=== PATIENT | male | born 1955 | race African-American/Black ===

== ENCOUNTER 2017-01-22 08:40 | Emergency (ER) | payer SELFPAY ==
[2017-01-22 08:44] VITALS: BMI 25.8
[2017-01-22] MEDS ORDERED: ASPIRIN ONE (08:48)
[2017-01-22] MEDS ORDERED: PEPCID 20 MG IV PREMIX* 20 MG/50 ML BAG IV ONE ×2 (09:15→09:19)
[2017-01-22] MEDS ORDERED: ASPIRIN 81 MG CHEWTAB PO ONE (09:17)
[2017-01-22] MEDS ORDERED: NS 1000 ML 1,000 ML ONE (09:19)
--- NOTE | 2017-01-22 09:19 | DR.GENAD ---
HPI - PCP Primary Care Physician: NFD - Complaint/Symptoms Chief Complaint:: "I have been walking to [place] and I started having some sharp chest pains. I just want to get checked out to make sure everything is okay." - Nurses notes reviewed Nurses Notes Review: Yes - Source History Provided: Patient - Mode of Arrival Mode of Arrival: Ambulatory - Timing Onset of Chief Complaint: 01/22/17 PMH - PMH Past Medical History: Yes Past Medical History: Hypertension Past Surgical History: Yes Surgical History: Ortho Surgery Past Surgical History Comment: Right hand (pins) - Family History History of Family Medical Conditions: Yes Family Medical History: Diabetes Mellitus, Cancer, Hypertension - Social History Does patient currently use any type of tobacco product: No Have you used tobacco products in the last 12 months: No Type of Tobacco Use: None Does any household member use tobacco: No Alcohol Use: DAILY Do you use any recreational Drugs:: No Lives With: Other Lives Where: Home - infectious screening In the last 2 months have you had wt loss of >10#?: NO Have you had fever, night sweats or hemotysis?: No Have you traveled outside the country in the last 6 months?: No Isolation: Standard ROS - Review of Systems Constitutional: Weakness, Fatigue. negative: Chills, Fever Eyes: No Symptoms Reported. negative: Eye Pain, Discharge ENTM: No Symptoms Reported. negative: Ear Pain, Nose Discharge, Nose Congestion , Throat Pain Respiratoy: Non-Productive Cough, Short of Breath. negative: Productive Cough, Wheezing, Hemoptysis Cardiovascular: Chest Pain. negative: Edema, Palpitations, Syncope Gastrointestinal/Abdominal: No Symptoms Reported All Other Systems: Reviewed and Negative PE - Vital Signs Vitals: Temperature 98.3 F Pulse Rate [Brachial] 99 Pulse Rate 95 Respiratory Rate 20 Blood Pressure [Left Arm] 119/62 Blood Pressure 134/80 O2 Sat by Pulse Oximetry 100 - General Limitations: No Limitations General Appearance: Alert - Head Head Exam: Normal Inspection - Eyes Eye exam: Normal Appearance - ENT ENT Exam: Normal External Ear Exam External Ear Exam: Normal External Inspection TM/Canal Exam: Bilateral Normal Mouth Exam: Normal Inspection Throat Exam: Normal Inspection - Neck Neck Exam: Normal Inspection, Trachea Midline - Chest Chest Inspection: Symmetric Chest Wall Rise - Respiratory Respiratory Exam: Normal Lung Sounds Bilat Respiratory Exam: Bilateral Clear to Auscultation - Cardiovascular Cardiovascular Exam: Regular Rate, Normal Rhythm, Normal Heart Sounds - Abdominal Exam Abdominal Exam: Normal Bowel Sounds, Soft. negative: Tenderness - Extremities Extremities Exam: Normal Inspection - Back Back Exam: Normal Inspection - Neurologic Neurological Exam: Alert, Oriented X3, CN II-XII Intact, Normal Gait, Reflexes Normal. negative: Motor Sensory Deficit - Psychiatric Psychiatric Exam: Normal Affect, Normal Mood - Skin Skin Exam: Normal Color MDM - Differential Diagnosis Differential Diagnosis: CHEST PAIN, PE, PNEUMONIA, [place] Course - Treatment Treatment: SEE ORDERS - Education/Counseling Education/Counseling: Patient, Education Educated On: Treatment, Diagnosis, Needs for Follow Up ROR - Labs Reviewed Laboratory Results Reviewed?: Yes Result Diagrams: 01/22/17 09:15 01/22/17 09:15 Laboratory: WBC 3.3 X10^3/uL (3.6-10.0) L 01/22/17 09:15 RBC 4.29 X10^6/uL (4.7-6.0) L 01/22/17 09:15 Hgb 11.0 g/dL (13.5-18.0) L 01/22/17 09:15 Hct 34.7 % (42.0-54.0) L 01/22/17 09:15 MCV 81.0 fL (80.0-100.0) 01/22/17 09:15 MCH 25.8 pg (27.0-34.0) L 01/22/17 09:15 MCHC 31.8 g/dL (33.0-35.0) L 01/22/17 09:15 RDW 24.2 % (11.6-16.5) H 01/22/17 09:15 Plt Count 288 X10^3/uL (150.0-450.0) 01/22/17 09:15 Plt Count Comment Adequate (ADEQUATE) 01/22/17 09:15 MPV 7.1 fL (7.4-11.0) L 01/22/17 09:15 Neut % 43.7 % (42.0-75.0) 01/22/17 09:15 Lymph % 46.3 % (21.0-51.0) 01/22/17 09:15 [place] % 6.6 % (0.0-13.0) 01/22/17 09:15 Eos % 1.8 % (0.9-2.9) 01/22/17 09:15 Baso % 1.6 % (0.2-1.0) H 01/22/17 09:15 Neut # 1.4 x10^3/uL (2.2-4.8) L 01/22/17 09:15 Lymph # 1.5 X10^3/uL (1.3-2.9) 01/22/17 09:15 [place] # 0.2 x10^3/uL (0.3-0.8) L 01/22/17 09:15 Eos # 0.1 x10^3/uL (0.0-0.2) 01/22/17 09:15 Baso # 0.1 X10^3/uL (0.0-0.1) 01/22/17 09:15 Absolute Nucleated RBC 0.1 /100WBC 01/22/17 09:15 Total Counted 100 01/22/17 09:15 Neutrophils % (Manual) 50 % (39-76) 01/22/17 09:15 Lymphocytes % (Manual) 36 % (13-43) 01/22/17 09:15 Monocytes % (Manual) 10 % (4-9) H 01/22/17 09:15 Eosinophils % (Manual) 4 % (0-6) 01/22/17 09:15 Plt Morphology Comment Normal (NORMAL) 01/22/17 09:15 RBC Morphology Abnormal (NORMAL) 01/22/17 09:15 Anisocytosis 2+ A 01/22/17 09:15 INR Target Range - 01/22/17 09:15 INR 0.92 (0.8-1.3) 01/22/17 09:15 PTT 26.2 SECONDS (22.9-36.5) 01/22/17 09:15 PTT Comment - 01/22/17 09:15 D-Dimer 1390 ng/mL (0-400) H* 01/22/17 09:15 Sodium 132 mmol/L (136-145) L 01/22/17 09:15 Corrected Sodium TNP 01/22/17 09:15 Potassium 4.2 mmol/L (3.5-5.1) 01/22/17 09:15 Chloride 101 mmol/L (98-107) 01/22/17 09:15 Carbon Dioxide 28.4 mmol/L (21-32) 01/22/17 09:15 BUN 7 mg/dL (7-18) 01/22/17 09:15 Creatinine 0.75 mg/dL (0.70-1.30) 01/22/17 09:15 Est GFR (MDRD) Af Amer > 60 (>60) 01/22/17 09:15 Est GFR (MDRD) Non-Af > 60 (>60) 01/22/17 09:15 Glucose 97 mg/dL (65-99) 01/22/17 09:15 Calcium 8.8 mg/dL (8.5-10.1) 01/22/17 09:15 Corrected Calcium TNP 01/22/17 09:15 Total Bilirubin 0.20 mg/dL (0.2-1.0) 01/22/17 09:15 AST 42 Units/L (15-37) H 01/22/17 09:15 ALT 22 Units/L (12-78) 01/22/17 09:15 Alkaline Phosphatase 64 Units/L (46-116) 01/22/17 09:15 Creatine Kinase 169 Units/L (39-308) 01/22/17 13:10 CK-MB (CK-2) < 1.0 ng/mL (0-4.0) 01/22/17 13:10 CK/CKMB % Calc 0.6 % (<4) 01/22/17 13:10 Troponin I < 0.02 ng/mL (0-1.5) 01/22/17 13:10 Total Protein 7.7 g/dL (6.4-8.2) 01/22/17 09:15 Albumin 3.5 g/dL (3.4-5.0) 01/22/17 09:15 Globulin 4.2 g/dL (2.5-4.5) 01/22/17 09:15 Albumin/Globulin Ratio 0.8 Ratio (1.1-2.1) L 01/22/17 09:15 Triglycerides 109 mg/dL (0-150) 01/22/17 09:15 Cholesterol 252 mg/dL (0-200) H 01/22/17 09:15 LDL Cholesterol, Calc 81 mg/dL (0-100) 01/22/17 09:15 HDL Cholesterol 149 mg/dL (40-60) H 01/22/17 09:15 Cholesterol/HDL Ratio 1.7 (0.0-5.0) 01/22/17 09:15 Specimen Type Clean catch urine 01/22/17 09:27 Urine Color Yellow (YELLOW) 01/22/17 09:27 Urine Appearance Clear (CLEAR) 01/22/17 09:27 Urine pH 5.0 (5.0 - 8.0) 01/22/17 09:27 Ur Specific [place] 1.010 (1.000-1.030) 01/22/17 09:27 Urine Protein Negative (NEGATIVE) 01/22/17 09:27 Urine Glucose (UA) Negative (NEGATIVE) 01/22/17 09:27 Urine Ketones Negative (NEGATIVE) 01/22/17 09:27 Urine Occult Blood Negative (NEGATIVE) 01/22/17 09:27 Urine Nitrite Negative (NEGATIVE) 01/22/17 09:27 Urine Bilirubin Negative (NEGATIVE) 01/22/17 09:27 Urine Urobilinogen Normal (NORMAL) 01/22/17 09:27 Ur Leukocyte Esterase Negative (NEGATIVE) 01/22/17 09:27 Urine RBC None seen /HPF (NEGATIVE) 01/22/17 09:27 Urine WBC None seen /HPF (NEGATIVE) 01/22/17 09:27 Ur Squamous Epith Cells Rare /HPF (NEGATIVE) 01/22/17 09:27 Urine Bacteria Negative /HPF (NEGATIVE) 01/22/17 09:27 Ur Culture Indicated? No/not indicated 01/22/17 09:27 Urine Opiates Screen Negative (NEG=<300) 01/22/17 09:27 Urine Methadone Screen Negative (NEG=<300) 01/22/17 09:27 Ur Barbiturates Screen Negative (NEG=<200) 01/22/17 09:27 Ur Phencyclidine Scrn Negative (NEG=<25) 01/22/17 09:27 Ur Amphetamines Screen Negative (NEG=<1000) 01/22/17 09:27 U Benzodiazepines Scrn Negative (NEG=<200) 01/22/17 09:27 Urine Cocaine Screen Negative (NEG=<300) 01/22/17 09:27 U Marijuana (THC) Screen Negative (NEG=<50) 01/22/17 09:27 H. pylori IgG Antibody Negative (NEGATIVE) 01/22/17 09:15 - XRAY XRAY Findings: REPORT DISCUSS WITH PATIENT. - Diagnosis Discharge Problem: Hypokalemia, Elevated d-dimer Chest pain Qualifiers: Chest pain type: precordial pain Qualified Code(s): R07.2 - Precordial pain - Discharge Plan Disposition: 01 HOME, SELF-CARE Condition: Stable - Follow ups/Referrals Follow ups/Referrals: NFD,None [Primary Care Provider] - 3 days - Instructions Instructions: Chest Pain Observation Additional Instructions: RETURN TO ED IF WORSE.
[2017-01-22 09:24] LABS: BASOPHILS # (AUTO) 0.1 X10^3/uL (0.0-0.1); BASOPHILS % (AUTO) 1.6 % (0.2-1.0); EOSINOPHILS # (AUTO) 0.1 x10^3/uL (0.0-0.2); EOSINOPHILS % (AUTO) 1.8 % (0.9-2.9); HEMATOCRIT 34.7 % (42.0-54.0); LYMPHOCYTES # (AUTO) 1.5 X10^3/uL (1.3-2.9); LYMPHOCYTES % (AUTO) 46.3 % (21.0-51.0); MEAN CORPUSCULAR HEMOGLOBIN 25.8 pg (27.0-34.0); MEAN CORPUSCULAR HGB CONC 31.8 g/dL (33.0-35.0); MEAN PLATELET VOLUME 7.1 fL (7.4-11.0); MONOCYTES # (AUTO) 0.2 x10^3/uL (0.3-0.8); MONOCYTES % (AUTO) 6.6 % (0.0-13.0); NEUTROPHILS # (AUTO) 1.4 x10^3/uL (2.2-4.8); NEUTROPHILS % (AUTO) 43.7 % (42.0-75.0); PLATELET COUNT 288 X10^3/uL (150.0-450.0); RED BLOOD COUNT 4.29 X10^6/uL (4.7-6.0); RED CELL DISTRIBUTION WIDTH 24.2 % (11.6-16.5); WHITE BLOOD COUNT 3.3 X10^3/uL (3.6-10.0)
[2017-01-22 09:44] LABS: BILIRUBIN,URINE NEGATIVE (NEGATIVE); BLOOD/HEMOGLOBIN,URINE NEGATIVE (NEGATIVE); GLUCOSE, URINE NEGATIVE (NEGATIVE); KETONES,URINE NEGATIVE (NEGATIVE); LEUKOCYTE ESTERASE ,URINE NEGATIVE (NEGATIVE); NITRITES,URINE NEGATIVE (NEGATIVE); PROTEIN,URINE NEGATIVE (NEGATIVE); UROBILINOGEN,URINE NORMAL (NORMAL)
--- NOTE | 2017-01-22 09:46 | RAD ---
HISTORY: Dyspnea, chest pain Study: Single-view chest Comparison: December 12, 2014 Findings: There are stable right basilar pleural calcifications and bilateral pleural thickening. The trachea i s midline. The cardiac silhouette is unremarkable. The lungs are clear without focal mass or consol idation. There is no effusion or pneumothorax. The bony thorax is grossly unremarkable. IMPRESSION: No acute cardiopulmonary disease. Reported By:
[2017-01-22 09:49] LABS: ANISOCYTOSIS 2+; PLATELET MORPHOLOGY COMMENT NORMAL (NORMAL)
[2017-01-22] MEDS ORDERED: NS 1000 ML 1,000 ML IV SCH (10:00)
[2017-01-22 10:03] LABS: ALANINE AMINOTRANSFERASE 22 Units/L (12-78); ALBUMIN 3.5 g/dL (3.4-5.0); ALKALINE PHOSPHATASE 64 Units/L (46-116); ASPARTATE AMINO TRANSFERASE 42 Units/L (15-37); BLOOD UREA NITROGEN 7 mg/dL (7-18); CALCIUM 8.8 mg/dL (8.5-10.1); CARBON DIOXIDE 28.4 mmol/L (21-32); CHLORIDE 101 mmol/L (98-107); CKMB % 0.5 % (<4); CREATINE KINASE 206 Units/L (39-308); CREATININE 0.75 mg/dL (0.70-1.30); SODIUM 132 mmol/L (136-145); TOTAL PROTEIN 7.7 g/dL (6.4-8.2); TROPONIN I < 0.02 ng/mL (0-1.5); eGFR BLACK RACES > 60 (>60); eGFR NON BLACK RACES > 60 (>60)
[2017-01-22 10:33] LABS: APPEARANCE,URINE CLEAR (CLEAR); BACTERIA,URINE NEGATIVE /HPF (NEGATIVE); COLOR,URINE YELLOW (YELLOW); RBC,URINE NONE SEEN /HPF (NEGATIVE); SQUAMOUS EPITHELIAL CELL,UR RARE /HPF (NEGATIVE)
[2017-01-22] MEDS ORDERED: NS 100 ML IV 100 ML IV ONE (10:33)
[2017-01-22 10:59] VITALS: BP 119/62
--- NOTE | 2017-01-22 12:11 | CT ---
CTA chest with contrast per pulmonary embolism protocol Indication: Chest pain with elevated D-dimer Comparison: None available Technique: Multiple axial images of the chest were obtained from the thoracic inlet to the upper abdo men after the administration of IV contrast.Coronal and Sagittal MIP images were also provided. Radiation dose reduction techniques were performed utilizing adjustment for MA/kVP based on patient body size. Findings: No central or segmental pulmonary arterial filling defect is identified. There is normal caliber of t he pulmonary artery without CT evidence or right heart strain. The heart size is within normal limits without pericardial effusion. There is moderate calcified athe rosclerotic disease of the LAD. No mediastinal, hilar or axillary adenopathy. Ground-glass and a few centrilobular nodular opacities are present within the right upper lobe suspicious for acute infiltra te. There is scarring/atelectasis within the right lower lobe, within the area of suspected scarring there is an approximate 9 mm nodular opacity on axial image 70 wall. No pleural effusion or pneumotho rax. There are dense calcifications within the right posterior pleura. There is a moderate sized sliding hiatal hernia with distal esophageal thickening. There is thickenin g of the right adrenal gland without discrete nodule or mass. Mild gynecomastia bilaterally. No acute osseous abnormality. IMPRESSION: 1. No PTE identified. 2. Centrilobular and ground-glass opacities in the right upper lobe consistent with infectious/inflam matory infiltrate. 3. Moderate scarring within the right lung base with thickened calcification of the right pleura sugg ests sequela of previous trauma or the empyema. No residual pleural fluid collection identified and c orrelation with clinical history is needed. 4. A 9 mm nodular opacity within the right lung base at the site of suspected scarring, correlation w ith prior imaging to ensure stability or followup chest CT in 6-12 months is recommended. 5. Moderate size sliding hiatal hernia with distal esophageal thickening likely represents esophagiti s in the setting of chronic gastroesophageal reflux disease; however correlation with clinical findin gs and potentially endoscopic evaluation based clinical concern for metaplasia or dysplasia of the es ophagus. 6. Refer to above for other incidental findings. Reported By:
[2017-01-22 13:37] LABS: CHOL/HDL RATIO 1.7 (0.0-5.0)
[2017-01-22 14:35] LABS: CKMB % 0.6 % (<4); CREATINE KINASE 169 Units/L (39-308); CREATINE KINASE MB < 1.0 ng/mL (0-4.0); TROPONIN I < 0.02 ng/mL (0-1.5)
== END 2017-01-22 14:18 | disposition home or self-care (01) ==
LOC: ER 08:46
DX: R07.2 Precordial pain (principal); E87.6 Hypokalemia; R79.1 Abnormal coagulation profile
CPT/HCPCS: 36415; 71010; 71275; 80053; 80061; 80307; 81001; 82550; 82553; 84484; 85025; 85378; 85610; 85730; 86677; 93005; 93010; 96365; 96367; 96374; 99283; A4222; S0028; G0434